=== PATIENT | male | born 1965 | race Caucasian/White ===

== ENCOUNTER 2021-04-15 11:42 | Observation (INO) ==
[2021-04-15] MEDS ORDERED: cefTRIAXone 1,000 MG in Water for inj. (sterile) 10 ML IVP ONE (13:18)
[2021-04-15] MEDS ORDERED: *HR* LORazepam 2 MG/ML VIAL IVP ONE (13:45)
[2021-04-15 14:07] LABS: BUN/Creatinine Ratio 11 (6-26); Blood Urea Nitrogen 10 mg/dL (6-20); C-Reactive Protein 25 mg/L (Less than 10); Calcium 9.8 mg/dL (8.6-10.3); Carbon Dioxide 27 mEq/L (23-29); Chloride 102 mEq/L (98-107); Glucose 81 mg/dL (70-105); Osmolality,Calculated 284 (280-300); Potassium 3.8 mEq/L (3.5-5.1); Sodium 138 mEq/L (136-145); eGFR For African Americans > 60 (> 60); eGFR For Non-African Americans > 60 (> 60)
[2021-04-15 14:23] LABS: Basophils # 0.1 K/mcL (0.0-0.2); Basophils % 0.6 %; Eosinophils # 0.1 K/mcL (0.0-0.6); Eosinophils % 1.2 %; Hematocrit 41.1 % (37.5-50.1); Hemoglobin 13.5 g/dL (12.9-16.9); Immature Granulocytes % 0.2 % (0-4); Lymphocytes # 1.5 K/mcL (0.6-4.6); Lymphocytes % 15.3 %; Mean Corpuscular HGB Conc 32.8 g/dL (31.6-35.5); Mean Corpuscular Hemoglobin 29.7 pg (28.0-33.3); Mean Corpuscular Volume 90.5 fL (83.0-100.0); Mean Platelet Volume 10.6 fL (9.4-12.4); Monocytes # 0.9 K/mcL (0.0-1.3); Monocytes % 8.7 %; Neutrophils # 7.4 K/mcL (1.6-8.9); Platelet Count 270 K/mcL (140-400); Red Blood Count 4.54 M/mcL (4.19-5.50); Red Cell Distribution Width 12.1 % (11.5-14.5); White Blood Count 10.1 K/mcL (4.3-11.1)
[2021-04-15] MEDS ORDERED: Ibuprofen 400 MG TABLET PO PRN (16:31)
[2021-04-15] MEDS ORDERED: Melatonin 3 MG TABLET PO PRN (16:31)
[2021-04-15] MEDS ORDERED: Ondansetron 4 MG/2 ML VIAL IVP PRN (16:31)
[2021-04-15] MEDS ORDERED: Naloxone 0.4 MG/ML INJ IVP PRN (16:31)
[2021-04-15] MEDS ORDERED: Azelastine 0.1% Nasal Spray 30 ML BOTTLE NS PRN (19:57)
[2021-04-15] MEDS: Piperacillin/Tazobactam 3.375 GM in 0.9 % Sodium Chloride Mini Bag 100 ML IVPB SCH (20:03)
[2021-04-15] MEDS ORDERED: DICLOFENAC SODIUM 100 GM TP PRN (20:49)
[2021-04-15] MEDS: traZODone 50 MG TABLET PO PRN (21:07)
[2021-04-15] MEDS: Melatonin 3 MG TABLET PO SCH (21:07)
[2021-04-15] MEDS: Iron Polysaccharide Complex 150 MG CAPSULE PO SCH (21:07)
[2021-04-15] MEDS: Loratadine 10 MG TABLET PO SCH (21:07)
[2021-04-15] MEDS ORDERED: IPRATROPIUM BROMIDE NS PRN (22:11)
[2021-04-16 02:50] LABS: Basophils # 0.1 K/mcL (0.0-0.2); Basophils % 0.7 %; Eosinophils # 0.3 K/mcL (0.0-0.6); Hematocrit 38.9 % (37.5-50.1); Immature Granulocytes % 0.2 % (0-4); Lymphocytes # 1.4 K/mcL (0.6-4.6); Lymphocytes % 17.4 %; Mean Corpuscular HGB Conc 33.4 g/dL (31.6-35.5); Mean Corpuscular Hemoglobin 30.7 pg (28.0-33.3); Monocytes # 0.9 K/mcL (0.0-1.3); Monocytes % 10.3 %; Neutrophils # 5.7 K/mcL (1.6-8.9); Platelet Count 222 K/mcL (140-400); Red Blood Count 4.23 M/mcL (4.19-5.50); Red Cell Distribution Width 12.2 % (11.5-14.5); Segmented Neutrophils % 68.4 %; White Blood Count 8.3 K/mcL (4.3-11.1)
[2021-04-16 03:07] LABS: BUN/Creatinine Ratio 14 (6-26); Blood Urea Nitrogen 13 mg/dL (6-20); Calcium 8.8 mg/dL (8.6-10.3); Carbon Dioxide 26 mEq/L (23-29); Chloride 104 mEq/L (98-107); Glucose 90 mg/dL (70-105); Magnesium 1.8 mg/dL (1.6-2.6); Osmolality,Calculated 286 (280-300); Sodium 138 mEq/L (136-145); eGFR For African Americans > 60 (> 60); eGFR For Non-African Americans > 60 (> 60)
[2021-04-16] MEDS: Piperacillin/Tazobactam 3.375 GM in 0.9 % Sodium Chloride Mini Bag 100 ML IVPB SCH ×3 (03:48→19:19)
[2021-04-16] MEDS ORDERED: Fluticasone Propionate Nasal 50 MCG/SPRAY BOTTLE NS SCH (09:00)
[2021-04-16] MEDS: FLUoxetine 20 MG CAPSULE PO SCH (09:06)
[2021-04-16] MEDS: Melatonin 3 MG TABLET PO SCH (20:35)
[2021-04-16] MEDS: traZODone 50 MG TABLET PO PRN (20:36)
[2021-04-16] MEDS: Iron Polysaccharide Complex 150 MG CAPSULE PO SCH (20:36)
[2021-04-16] MEDS: Loratadine 10 MG TABLET PO SCH (20:36)
[2021-04-17 03:26] LABS: BUN/Creatinine Ratio 12 (6-26); Blood Urea Nitrogen 13 mg/dL (6-20); Calcium 8.9 mg/dL (8.6-10.3); Carbon Dioxide 26 mEq/L (23-29); Chloride 105 mEq/L (98-107); Glucose 96 mg/dL (70-105); Osmolality,Calculated 286 (280-300); Sodium 138 mEq/L (136-145); eGFR For African Americans > 60 (> 60); eGFR For Non-African Americans > 60 (> 60)
[2021-04-17] MEDS: Piperacillin/Tazobactam 3.375 GM in 0.9 % Sodium Chloride Mini Bag 100 ML IVPB SCH (03:57)
[2021-04-17] MEDS: FLUoxetine 20 MG CAPSULE PO SCH (08:13)
[2021-04-17] MEDS ORDERED: Fluticasone Propionate Nasal 50 MCG/SPRAY BOTTLE NS SCH (09:00)
[2021-04-17 10:44] VITALS: BP 126/81; PULSE 90; TEMP 98.1; O2SAT 96
[2021-04-17 10:52] LABS: Adenovirus Not Detected (Not Detect); Bordetella Pertussis Not Detected (Not Detect); Chlamydophila pneumoniae Not Detected (Not Detect); Coronavirus 229E Not Detected (Not Detect); Coronavirus HKU1 Not Detected (Not Detect); Coronavirus NL63 Not Detected (Not Detect); Coronavirus OC43 Not Detected (Not Detect); Human Metapneumovirus Not Detected (Not Detect); Human Rhinovirus/Enterovirus Not Detected (Not Detect); Influenza A Subtype 2009 H1 Not Detected (Not Detect); Influenza B Not Detected (Not Detect); Mycoplasma pneumoniae Not Detected (Not Detect); Parainfluenza Virus 1 Not Detected (Not Detect); Parainfluenza Virus 2 Not Detected (Not Detect); Parainfluenza Virus 3 Not Detected (Not Detect); Parainfluenza Virus 4 Not Detected (Not Detect); Respiratory Syncytial Virus Not Detected (Not Detect); SARS-CoV-2 Not Detected (Not Detect)
== END 2021-04-17 13:13 ==
LOC: EMEROOARM 11:42 → 3ANU 11:42 → SUATTDRO 16:05 → 3ANU 17:11
PROVIDERS: ADMIT Hospitalist; ATTEND Family Medicine